=== PATIENT | male | born 1965 | race Caucasian/White ===

== ENCOUNTER 2021-04-19 17:02 | Emergency (ER) | payer OTHER ==
[~2021-04-19] VITALS: Ht 175.3 cm; Wt 65.8 kg
[2021-04-19 17:04] VITALS: BP 143/76
--- NOTE | 2021-04-19 17:07 | NUR ---
SEEN AND EXAMINED BY .
[2021-04-19] MEDS ORDERED: IBUP-1955 PO (18:05)
[2021-04-19] MEDS ORDERED: IBUPROFEN 600 MG TABLET ONE (18:25)
[2021-04-19] MEDS ORDERED: IBUPROFEN 600 MG TABLET PO ONE (18:30)
--- NOTE | 2021-04-19 18:46 | NUR ---
Patient discharged in custody in stable condition. Written and verbal after care instructions given. Patient verbalizes understanding of instruction.
== END 2021-04-19 18:47 ==
LOC: ER 17:05
DX: M19.031 Primary osteoarthritis, right wrist (principal); M19.041 Primary osteoarthritis, right hand
CPT/HCPCS: 73110; 73130-TC